=== PATIENT | female | born 1975 | race Caucasian/White ===

== ENCOUNTER 2017-06-21 22:47 | Emergency (ER) | payer SELFPAY ==
[2017-06-22 01:03] VITALS: BP 141/90
== END 2017-06-22 01:03 | disposition home or self-care (01) ==
LOC: ED 22:47
DX: T78.40XA Allergy, unspecified, initial encounter (principal); Z88.8 Allergy status to other drugs, medicaments and biological substances; X58.XXXA Exposure to other specified factors, initial encounter
CPT/HCPCS: J0171; J7512; Q0163

== ENCOUNTER 2018-05-22 23:28 | Emergency (ER) | payer SELFPAY ==
[~2018-05-22] VITALS: Ht 167.6 cm; Wt 136.2 kg
[2018-05-23 00:55] VITALS: BP 150/95
== END 2018-05-23 00:55 | disposition home or self-care (01) ==
LOC: ED 23:28
DX: L23.2 Allergic contact dermatitis due to cosmetics (principal)
CPT/HCPCS: J1200; J7512

== ENCOUNTER 2020-11-26 13:23 | Emergency (ER) | payer OTHER ==
[~2020-11-26] VITALS: Ht 170.2 cm; Wt 122.0 kg
[2020-11-26 16:20] LABS: BASOPHIL % 0.3 % (0.2-1.3); PLATELET COUNT 270 x10^3mcL (179-408); RED CELL DISTRIBUTION WIDTH 13.9 % (12.3-17.7)
[2020-11-26 16:39] LABS: CHLORIDE SERUM 102 mmol/L (98-107); CREATININE SERUM 0.7 mg/dL (0.6-1.0); GFR1 > 60 mL/min; GLUCOSE SERUM 112 mg/dL (74-106); POTASSIUM SERUM 4.4 mmol/L (3.5-5.1); SODIUM SERUM 137 mmol/L (136-145)
[2020-11-26 16:44] LABS: ALBUMIN 3.8 g/dL (3.4-5.0); ALT/SGPT 54 U/L (14-59); AST/SGOT 32 U/L (15-37); BILIRUBIN TOTAL 0.4 mg/dL (0.20-1.00); TOTAL PROTEIN, SERUM 7.7 g/dL (6.4-8.2)
[2020-11-26 17:10] LABS: ALKALINE PHOSPHATASE 96 U/L (46-116)
[2020-11-26 20:44] VITALS: BP 154/71
== END 2020-11-26 20:44 | disposition home or self-care (01) ==
LOC: ED 13:23
PROVIDERS: Student in an Organized Health Care Education/Training Program
DX: R07.89 Other chest pain (principal); I10 Essential (primary) hypertension; Z91.048 Other nonmedicinal substance allergy status